=== PATIENT | female | born 1940 | race Caucasian/White ===

== ENCOUNTER 2020-02-10 13:39 | Emergency (ER) | payer MEDICARE, OTHER ==
[~2020-02-10] VITALS: Ht 165.1 cm; Wt 67.1 kg
[2020-02-10] MEDS ORDERED: HYDROCHLOROTHIA25 M2 PO (14:13)
[2020-02-10] MEDS ORDERED: FISH OIL 1,0001 EAC9 PO (14:13)
[2020-02-10] MEDS ORDERED: PROTONIX 20 MG20 MG PO (14:13)
[2020-02-10] MEDS ORDERED: CARBIDOPA-LEVO1 EAC5 PO (14:13)
[2020-02-10] MEDS ORDERED: BIOTIN0.5 GM PO (14:14)
[2020-02-10] MEDS ORDERED: CELEXA 10 MG TA10 M1 PO (14:14)
[2020-02-10] MEDS ORDERED: EFFER-K 10 MEQ10 ME1 PO (14:14)
[2020-02-10 15:43] VITALS: BP 145/72
== END 2020-02-10 15:45 | disposition home or self-care (01) ==
LOC: M.ERS 13:39
DX: S01.01XA Laceration without foreign body of scalp, initial encounter (principal); G20 Parkinson's disease; Z90.710 Acquired absence of both cervix and uterus; Z90.49 Acquired absence of other specified parts of digestive tract; Z88.1 Allergy status to other antibiotic agents; Z88.6 Allergy status to analgesic agent; Z88.7 Allergy status to serum and vaccine; W18.39XA Other fall on same level, initial encounter; Y93.89 Activity, other specified; Y92.89 Other specified places as the place of occurrence of the external cause; Y99.8 Other external cause status

== ENCOUNTER → 2020-09-12 | Outpatient (CLI) | payer MEDICARE, OTHER ==
[~2020-09-12] MED LIST: ALEVE PM CAPLE1 EACH PO; BIOTIN0.5 GM PO; CARBIDOPA-LEVO1 EAC5 PO; CELEXA 10 MG TA10 M1 PO; EFFER-K 10 MEQ10 ME1 PO; FISH OIL 1,0001 EAC9 PO; HYDROCHLOROTHIA25 M2 PO; POTASSIUM99 M1 PO; PROTONIX 20 MG20 MG PO; PROTONIX40 M4 PO; SINEMET 25-1001 EAC1 PO
[2020-09-12 10:21] LABS: HEMATOCRIT 40.2 % (37.0-47.0); HEMOGLOBIN 13.4 gm/dL (12.0-15.0); MCH 31.4 pg (26.0-34.0); MCHC 33.4 g/dL (28.0-37.0); MCV 93.9 fL (80.0-100.0); RBC 4.28 mil/uL (4.20-5.00); RDW-CV 13.6 % (10.5-14.5); WBC 9.2 thou/uL (4.0-11.0)
[2020-09-12 10:26] LABS: URINE BILIRUBIN NEGATIVE (Negative); URINE BLOOD NEGATIVE (Negative); URINE CLARITY CLEAR; URINE COLOR YELLOW; URINE GLUCOSE-RANDOM NEGATIVE (Negative); URINE KETONES NEGATIVE (Negative); URINE LEUKOCYTES-REFLEX NEGATIVE (Negative); URINE NITRITE-REFLEX NEGATIVE (Negative); URINE PROTEIN NEGATIVE (Negative); URINE SPECIFIC GRAVITY 1.015 (1.005-1.030); URINE UROBILINOGEN 0.2 E.U./dl (0.2-1.0)
[2020-09-12 10:40] LABS: ALBUMIN 3.5 g/dL (3.4-5.0); CALCIUM 9.3 mg/dL (8.5-10.1); CREATININE 0.8 mg/dL (0.6-1.3); POTASSIUM 4.3 mmol/L (3.5-5.1); TOTAL BILIRUBIN 0.5 mg/dL (<0.1-1.0); TOTAL PROTEIN 7.4 g/dL (6.4-8.2)
[2020-09-12 10:45] LABS: PROTIME 10.5 Seconds (9.20-11.50)
--- NOTE | 2020-09-12 13:27 | EKG ---
[place] [address] ELECTROCARDIOGRAM REPORT Name: DI JEWELL Room: [facility]#: [id number] Admission: 09/12/20 Attend Phys: Ty Orta, Discharge: Date of : 36 Date of Service: 09/12/20 1030 Report #: [id number] THIS REPORT FOR: //name// [facility] Test Date: 2020-09-12 Test Time: 10:30:40 Pat Name: DI JEWELL Department: Room: Gender: F [employer]visor [employer]: : 1940 Requested By: Ty Orta Order Number: [id number] Reading MD: Uvaldo Ann Measurements Intervals [place] Rate: 69 P: 75 NM: 176 QRS: 50 QRSD: 76 T: 51 QT: 410 QTc: 440 Interpretive Statements Sinus rhythm No previous ECG available for comparison Electronically Signed On 09-12-2020 13:26:54 CDT by Uvaldo Ann [email or web address] <ELECTRONICALLY SIGNED> By: Uvaldo Ann MD, [facility] 09/12/20 1326 1030 1030 Uvaldo Ann MD, FACC /EPI
== END ==
LOC: M.LAB 09-11 11:56
PROVIDERS: ATTEND Orthopaedic Surgery
DX: Z01.812 Encounter for preprocedural laboratory examination (principal); Z20.828 Contact with and (suspected) exposure to other viral communicable diseases; M16.11 Unilateral primary osteoarthritis, right hip; I49.9 Cardiac arrhythmia, unspecified

== ENCOUNTER 2020-09-18 09:26 | Inpatient (IN) | payer MEDICARE, OTHER ==
[~2020-09-18] VITALS: Ht 165.1 cm; Wt 66.7 kg
[2020-09-18 10:45] VITALS: BP 148/82
[2020-09-18 18:16] VITALS: BP 141/55
[2020-09-18 19:56] VITALS: BP 118/52
[2020-09-18 23:22] VITALS: BP 150/75
[2020-09-19 02:00] LABS: URINE BILIRUBIN NEGATIVE (Negative); URINE BLOOD NEGATIVE (Negative); URINE CLARITY CLEAR; URINE COLOR YELLOW; URINE GLUCOSE-RANDOM NEGATIVE (Negative); URINE KETONES NEGATIVE (Negative); URINE LEUKOCYTES-REFLEX NEGATIVE (Negative); URINE NITRITE-REFLEX NEGATIVE (Negative); URINE PROTEIN NEGATIVE (Negative); URINE UROBILINOGEN 0.2 E.U./dl (0.2-1.0)
[2020-09-19 03:48] LABS: HEMATOCRIT 33.3 % (37.0-47.0); HEMOGLOBIN 11.1 gm/dL (12.0-15.0)
[2020-09-19 04:59] VITALS: BP 130/63
--- NOTE | 2020-09-19 06:01 | OP ---
[facility] [address] [place] [address] OPERATIVE REPORT Name: DI JEWELL Room: [address] M.R.#: [id number] Admission: 09/18/20 Attend Phys: Den Bernstein Discharge: Date of : 36 Report #: [id number] THIS REPORT FOR: //name// cc: Alberto Crow MD, Matthew W. MD ~ CC: Alberto Reynoso DATE OF SERVICE: 09/18/2020 PREOPERATIVE DIAGNOSIS: Right hip osteoarthritis. POSTOPERATIVE DIAGNOSIS: Right hip osteoarthritis. PROCEDURE: Right total hip arthroplasty. SURGEON: Ty Orta II, DO. CHEMISTRY PROFESSOR: HAZEL Gentile. ANESTHESIA: General endotracheal. ESTIMATED BLOOD LOSS: 250 mL. ANTIBIOTICS: Ancef preoperatively. DRAINS: Medium Hemovac. COMPLICATIONS: None. CONDITION OF THE PATIENT: Stable to recovery room. IMPLANTS: Listed in operative record and progress note. BRIEF HISTORY: The patient was seen in the preoperative area. Preoperative history and physical was performed. Site was marked, questions were answered. Risks and benefits were discussed with the patient in detail about surgery. The patient wished to proceed, assuming all risks. DESCRIPTION OF PROCEDURE: The patient was taken to the operative suite, placed supine on the operative table, administered general anesthesia. The patient's operative hip was placed in the [place] table leg gustafson and sterilely prepped and draped in supine position. Surgery began by longitudinal incision over the anterior portion of the hip. This was carried down to the subcutaneous tissues. A small dario was made in the tensor fascia. It was then split along its fibers [address] [address] OPERATIVE REPORT Name: BESTDI Emily Room: [address] .R.#: [id number] Admission: 09/18/20 Attend Phys: Den Bernstein Discharge: Date of : 36 Report #: [id number] and retracted laterally. An H capsulotomy was then performed and careful hemostasis was obtained with electrocautery and Aquamantys. The head and neck cutting alignment guide was then checked with fluoroscopic guidance. Appropriate cut was made to the head and neck and this was removed. Attention was turned to the acetabulum. Excess labrum was removed. It was then reamed in sequential fashion up to appropriate size. This showed excellent bleeding bone in excellent position on fluoroscopic guidance. The acetabular cup was then malleted into position and secured with cancellous screws. Metal liner was then applied. The patient's leg was then rotated and extended in the [place] table to expose the femur. It was then broached in sequential fashion up to appropriate size. The appropriate neck was then trialed with appropriate head length and shown to have excellent fit and fill and excellent stability of hip throughout all range of motion. These trials were removed. The final stem was then malleted into position and the final head and neck was then malleted into position. It was reduced in appropriate fashion, checked with C-arm for appropriate leg length and showed excellent leg length throughout the exam without evidence of dislocation upon range of motion and shuck testing. Wound was then copiously irrigated. Hemostasis was obtained with electrocautery and Aquamantys. Pain cocktail was injected. PRP gel sprayed throughout the internal aspects of the hip and drain was activated. The H capsulotomy was then closed utilizing #1 Vicryl in [id number] fashion. Tensor fascia was closed with #1 Vicryl in running fashion. Skin was closed with 2-0 Vicryl and running 3-0 Monocryl with Dermabond and sterile dressing applied. The patient transported to recovery room in stable condition. Counts were correct throughout the procedure. <ELECTRONICALLY SIGNED> By: Ty Orta II, DO 09/19/20 0601 [id number] Orta II, DO /nt
[2020-09-19 07:20] VITALS: BP 133/60
[2020-09-19 12:00] VITALS: BP 114/49
[2020-09-19 16:49] VITALS: BP 122/55
[2020-09-19 21:25] VITALS: BP 115/67
[2020-09-20] VITALS: BP 149/70
[2020-09-20 04:00] VITALS: BP 137/63
[2020-09-20 05:18] LABS: HEMATOCRIT 30.8 % (37.0-47.0); HEMOGLOBIN 10.5 gm/dL (12.0-15.0); MCH 31.6 pg (26.0-34.0); MCHC 34.3 g/dL (28.0-37.0); MCV 92.3 fL (80.0-100.0); MPV 8.9 fl. (7.2-11.1); RBC 3.33 mil/uL (4.20-5.00); RDW-CV 13.5 % (10.5-14.5); WBC 13.6 thou/uL (4.0-11.0)
[2020-09-20 05:29] LABS: CALCIUM 8.1 mg/dL (8.5-10.1); CREATININE 0.7 mg/dL (0.6-1.3); MAGNESIUM 1.6 mg/dL (1.8-2.4); POTASSIUM 3.4 mmol/L (3.5-5.1)
[2020-09-20 08:05] VITALS: BP 123/51
[2020-09-20 12:47] VITALS: BP 137/63
[2020-09-20] MEDS ORDERED: XARELTO10 MG PO (15:21)
[2020-09-20] MEDS ORDERED: PERCOCET PO (15:21)
[2020-09-20] MEDS ORDERED: COLACE 100 MG100 MG PO (15:21)
[2020-09-20] MEDS ORDERED: METAMUCIL PACK3.4 GM PO (15:21)
== END 2020-09-20 16:30 | disposition home health service (06) | DRG 470 ==
LOC: M.PRE → M.ORTHSURG 09:59 → M.TBA 09:59 → M.PRE 10:00 → M.ORTHSURG 16:59
PROVIDERS: Internal Medicine; Orthopaedic Surgery; ADMIT Internal Medicine; ATTEND Internal Medicine
PROC: 0SR901Z Replacement of Right Hip Joint with Metal Synthetic Substitute, Open Approach (ICD-10-PCS; principal; 2020-09-18)
DX: M16.11 Unilateral primary osteoarthritis, right hip (principal); K21.9 Gastro-esophageal reflux disease without esophagitis; F32.9 Major depressive disorder, single episode, unspecified; F41.9 Anxiety disorder, unspecified; G47.00 Insomnia, unspecified; G20 Parkinson's disease; Z88.6 Allergy status to analgesic agent; Z88.1 Allergy status to other antibiotic agents; Z88.7 Allergy status to serum and vaccine; Z90.710 Acquired absence of both cervix and uterus; Z90.49 Acquired absence of other specified parts of digestive tract; Z98.42 Cataract extraction status, left eye; Z98.41 Cataract extraction status, right eye

== ENCOUNTER → 2020-10-22 | Outpatient (CLI) | payer MEDICARE, OTHER ==
[~2020-10-22] MED LIST changes: +COLACE 100 MG100 MG PO; +METAMUCIL PACK3.4 GM PO; +PERCOCET PO; +XARELTO10 MG PO
== END ==
LOC: M.RAD 09:45
PROVIDERS: ATTEND Orthopaedic Surgery
DX: M25.551 Pain in right hip (principal)